=== PATIENT | female | born 1990 | race Caucasian/White ===

== ENCOUNTER 2018-08-27 13:19 | Inpatient (IN) | payer OTHER ==
[2018-08-27] VITALS (33 sets, daily range): BP systolic 126–194; BP diastolic 78–120
[~2018-08-27] VITALS: Ht 160 cm; Wt 83.1 kg
[2018-08-27] MEDS ORDERED: PRENTAB9 PO (13:28)
[2018-08-27] MEDS ORDERED: NIFEdipine 10 MG CAP PO ONE ×3 (13:45→18:45)
[2018-08-27] MEDS ORDERED: LABETALOL HCL 100 MG/20 ML VIAL IV ONE (13:45)
[2018-08-27 14:04] LABS: HEMATOCRIT 35.6 % (36.0-47.0); HEMOGLOBIN 12.1 g/dl (12.0-15.5); MEAN CORPUSCULAR HEMOGLOBIN 29.6 pg (27.0-33.0); PLATELET COUNT, AUTOMATED 109 10^3/uL (150-450); RED BLOOD COUNT 4.09 10^6/uL (4.00-5.40); WHITE BLOOD COUNT 8.2 10^3/uL (4.0-10.0)
[2018-08-27 14:35] LABS: ALT/SGPT 30 U/L (12-78); BILIRUBIN,TOTAL 0.1 MG/DL (0.2-1.0); CREATININE FOR GFR 0.48 MG/DL (0.55-1.30); GLOMERULAR FILTRATION RATE > 60.0 (>60); LDH LACTATE DEHYDROGENASE 192 U/L (84-246); URIC ACID 5.7 MG/DL (2.6-6.0)
[2018-08-27 14:42] LABS: CREATININE,RANDOM URINE 56.8 MG/DL; TOTAL PROTEIN,RANDOM URINE 506.8 MG/DL (0.0-12.0)
--- NOTE | 2018-08-27 16:05 | REP ---
Obstetric sonography: Limited study. History: Severe hypertension. well-being. Findings: Scanning demonstrates a viable single intrauterine gestation in a cephalic lie. Placenta is posterior fundal grade 2 without evidence of previa or abruption. Amniotic fluid is subjectively normal. ALETHA is normal at 12.8 cm. Biophysical profile score is six out of a possible eight with the zero scored for breathing. SD ratio in the umbilical cord artery by Doppler slightly elevated at 3.52 (2.00-3.00). heart rate is recorded at 132 beats per minute. Closed cervical length is 3.6 cm measured transabdominally. Electronically Signed by Juvenal Richards MD 08/27/2018 03:57 P
[2018-08-27] MEDS ORDERED: MAG Sulf (L&D) 4 GM/100 ML 4 GM in APPROPRIATE DILUENT 1 EA IV ONE (16:30)
[2018-08-27] MEDS ORDERED: miSOPROStol 50 MCG 1/2 TAB (S0191) PO PRN (16:30)
[2018-08-27] MEDS ORDERED: CALCIUM GLUCONATE 1,000 MG in D5W MINI-BAG PLUS 100 ML IV PRN (16:30)
[2018-08-27] MEDS ORDERED: LR 1,000 ML IV SCH (16:30)
[2018-08-27] MEDS ORDERED: BETAMETHASONE SOLUSPAN 6MG/ML INJ 5ML (J0702) IM SCH (16:30)
[2018-08-27] MEDS ORDERED: NIFEdipine 10 MG CAP As Ordered ONE (16:33)
[2018-08-27] MEDS ORDERED: MAGNESIUM *L&D* 4 GM/100 ML BAG (40MG/ML) (J3475) As Ordered ONE (16:34)
[2018-08-27] MEDS ORDERED: MAGNESIUM SULFATE 4% INJ 20GM/500ML (40MG/ML) (J3475) As Ordered ONE (16:35)
[2018-08-27] MEDS: LR 1,000 ML IV SCH (16:52)
[2018-08-27] MEDS: MAG Sulf (OBGYN) 20GM/500ML 20,000 MG in APPROPRIATE DILUENT 1 EA IV SCH (17:05)
--- NOTE | 2018-08-27 17:26 | HPEPDOC ---
Obstetrical History & Physical General Date of Admission Aug 27, 2018 at 16:48 History of Present Illness 27 y/o at 34+5 by 9 wk US and LMP dx'd with pre-e in the last 1-2 weeks, today for BP check with noted severe range BP's. 160-180's/90-100's. Feels well, no SAUL or RUQ pain. Labs done at first eval showed Cr 0.48, AST 33, SLT 30, LDH 192, Uric 5.7, Hct35.6, Plt 109 and spot urine P/Cr 8.92. All c/w Pre- E, severe features. No VB/LOF/reg ctx's. Irreg ctx's and pos FM present. Information Provided By: Patient Care Care: Good Care Dating Final EDC by: LMP, 1st trimester (US) Past Medical History Past Obstetrical History : Past Obstetrical History: Primgravida Past Medical History Medical History fibromyalgia Surgical History: Henderson teeth Family History Significant Family History: No pertinent family hx Social History Marital Status: Family situation: Spouse/partner home Psychosocial History: No pertinent psych hx * Smoker: non-smoker Alcohol: Denies Drugs: denies Abuse Violence Screening Have you been hit/kicked/slapp: No Have you been sexually assault: No Imunizations Tdap status: current Influenza Status: declined Allergies Coded Allergies: No Known Allergies (Unverified , 08/27/18) Medications Scheduled Multivitamins/ ( 27-0.8 mg) 1 Tab Tab, 1 TAB PO DAILY Physical Examination Physical Examination GENERAL: Alert and oriented times three. ABDOMEN: Gravid and non-tender to touch. FETUS: Is vertex (VTX) by sterile vaginal examination (SVE) and ultrasound, Cx L/C EXTREMITIES: No edema. No clonus, DTR's 2+ Vital Signs/I&O Vital Signs Date Time Temp Pulse Resp B/P (MAP) Pulse Ox O2 Delivery O2 Flow Rate FiO2 08/27/18 15:34 96 20 159/105 (123) 08/27/18 13:35 97.6 Laboratory Data 24H LABS Laboratory Tests 2 08/27/18 13:53: Urine Random Creatinine 56.8, Urine Random Total Protein 506.8H 08/27/18 13:56: Nucleated Red Blood Cells % (auto) 0.0, Glomerular Filtration Rate > 60.0, Creatinine 0.48L, Aspartate Amino Transf (AST/SGOT) 33, Alanine Aminotransferase (ALT/SGPT) 30, Lactate Dehydrogenase 192, Total Bilirubin 0.1L, Uric Acid 5.7 CBC/BMP Laboratory Tests 08/27/18 13:56 Red Blood Count 4.09, Mean Corpuscular Volume 87.0, Mean Corpuscular Hemoglobin 29.6, Mean Corpuscular Hemoglobin Concent 34.0, Red Cell Distribution Width 13.4, Aspartate Amino Transf (AST/SGOT) 33, Alanine Aminotransferase (ALT/SGPT) 30, Lactate Dehydrogenase 192, Total Bilirubin 0.1 L, Uric Acid 5.7 Urine Culture: Other (GBS) Pertinent Laboratoy Data Blood Type: O+ RBC Antibody Screen: Negative HIV: Negative Hepatitis B: Negative Hepatitis C: Unknown Rapid Plasma Reagin: Nonreactive Rubella: Immune Varicella: Immune Chlamydia/Gonorrhea: Negative Group B Streptococcus: Positive Quad Screen Test: Declined Cystic Fibrosis: Negative Glucose Tolerance Test: 111 Anatomy Ultrasound Placenta Location: Posterior Normal Anatomy: Yes Placenta Previa: No Steroid Therapy Steroid Therapy: Yes (started today; Beta 12 mg IM X2) Assessment Variability: Moderate Accelerations: Positive Decelerations: None Tocometer Contractions: Yes Frequency: irregular Assessment/Plan Assessment 35+4 with Pre-E, severe features Plan Admit and orient. Residential Advisor and consent. Diet: clears, limit oral intake. Group B Streptococcus (GBS) pos-will tx with PCN once in active labor. Received Nifedipine PO 10 mg a few hours ago to good effect but BP's worsened thereafter, just received Nifedipine 20 mg PO also to good effect. Will use another dose of oral Nifedipine if needed, then PO and IV Labetalol as needed. Q 6 hr CBC/Pre-E Pnl and Mag level (slightly elevated Cr) and intravenous (IV) Mag Sulfate per unit protocol. Betamethasone 12 mg IM now and in 24 hours. Counseled on Cytotec/Pitocin/Jackson Bulb and induction of labor (IOL). Will start with Cytotec 50 mcg po q 4 hrs prn per SOP. Lactated Ringers (LR) 125 mL/hr total with the Mag sulfate. Fley catheter. Anticipate normal spontaneous delivery (), C-S as appropriate. NICU consult. SESSIONS,ANJANA Bird MD Aug 27, 2018 17:26
[2018-08-27] MEDS ORDERED: ONDANSETRON 4MG/2ML VIAL (J2405) IV ONE (18:45)
[2018-08-27] MEDS ORDERED: ONDANSETRON 4MG/2ML VIAL (J2405) As Ordered ONE ×2 (18:47→22:08)
[2018-08-27 19:53] LABS: HEMATOCRIT 43.7 % (36.0-47.0); HEMOGLOBIN 14.9 g/dl (12.0-15.5); MEAN CORPUSCULAR HEMOGLOBIN 29.7 pg (27.0-33.0); MEAN CORPUSCULAR HGB CONC 34.1 g/dl (32.0-36.5); MEAN CORPUSCULAR VOLUME 87.2 fl (80.0-96.0); RED BLOOD COUNT 5.01 10^6/uL (4.00-5.40); WHITE BLOOD COUNT 20.7 10^3/uL (4.0-10.0)
[2018-08-27] MEDS ORDERED: LABETALOL 200 MG TAB PO SCH (20:00)
[2018-08-27] MEDS ORDERED: LABETALOL HCL 100 MG/20 ML VIAL IV STA (20:03)
[2018-08-27 20:20] LABS: PLATELET COUNT, AUTOMATED 57 10^3/uL (150-450)
[2018-08-27 20:38] LABS: ALT/SGPT 621 U/L (12-78); CREATININE FOR GFR 0.46 MG/DL (0.55-1.30); GLOMERULAR FILTRATION RATE > 60.0 (>60); LDH LACTATE DEHYDROGENASE 1453 U/L (84-246); MAGNESIUM LEVEL 5.3 MG/DL (1.8-2.4)
[2018-08-27] MEDS ORDERED: BICITRA 30ML SOLN UDC As Ordered ONE ×2 (21:09→21:10)
[2018-08-27] MEDS ORDERED: ceFAZolin 2 GM/D5W 50 ML IV BAG (J0690 PER 500MG) As Ordered ONE (21:10)
[2018-08-27] MEDS ORDERED: OXYTOCIN INJ 10 UNITS/ML VIAL (J2590) As Ordered ONE ×3 (21:21→22:31)
[2018-08-27] MEDS ORDERED: PROPOFOL 200 MG/20 ML VIAL As Ordered ONE (21:22)
[2018-08-27] MEDS ORDERED: LIDOCAINE 2% INJ 100 MG/5 ML SDV (FOR ANES.) As Ordered ONE (21:22)
[2018-08-27] MEDS ORDERED: MIDAZOLAM INJ 2 MG/2 ML VIAL (J2250) As Ordered ONE (21:23)
[2018-08-27] MEDS ORDERED: fentaNYL 100 MCG/2 ML INJECTION (J3010) As Ordered ONE ×2 (21:23→22:30)
[2018-08-27] MEDS ORDERED: SUCCINYLCHOLINE 100 MG/5 ML SYRINGE (J0330) As Ordered ONE (21:23)
[2018-08-27] MEDS ORDERED: BICITRA 30ML SOLN UDC PO ONE (21:30)
[2018-08-27] MEDS ORDERED: miSOPROStol 200 MCG TAB (S0191) As Ordered ONE (21:55)
[2018-08-27 22:01] LABS: CORD GAS ABE V -6.7; CORD GAS HCO3 V 21.1 MEQ/L; CORD GAS PCO2 V 50.6 mmHg; CORD GAS PH V 7.239 UNITS; CORD GAS PO2 V 27.7 mmHg; CORD GAS SBC V 18.2 MEQ/L; CORD GAS TCO2 V 22.7 MEQ/L
[2018-08-27 22:02] LABS: CORD GAS ABE A -5.5; CORD GAS HCO3 A 23.7 MEQ/L; CORD GAS O2 SAT A 16.2 %; CORD GAS PCO2 A 62.5 mmHg; CORD GAS PH A 7.197 UNITS; CORD GAS PO2 A 12.4 mmHg; CORD GAS SBC A 18.1 MEQ/L; CORD GAS TCO2 A 25.6 MEQ/L
[2018-08-27] MEDS ORDERED: METOCLOPRAMIDE INJ 10MG/2ML VIAL (J2765) As Ordered ONE (22:09)
[2018-08-27] MEDS ORDERED: dexameTHASONE 4 MG/ML 1ML VIAL (J1100) As Ordered ONE (22:12)
[2018-08-27 22:33] LABS: HEMATOCRIT 31.9 % (36.0-47.0); HEMOGLOBIN 10.9 g/dl (12.0-15.5); MEAN CORPUSCULAR HEMOGLOBIN 29.8 pg (27.0-33.0); MEAN CORPUSCULAR HGB CONC 34.2 g/dl (32.0-36.5); MEAN CORPUSCULAR VOLUME 87.2 fl (80.0-96.0); PLATELET COUNT, AUTOMATED 51 10^3/uL (150-450); RED BLOOD COUNT 3.66 10^6/uL (4.00-5.40); WHITE BLOOD COUNT 23.7 10^3/uL (4.0-10.0)
[2018-08-27 22:42] LABS: INR 1.08; PROTHROMBIN TIME 14.1 SECONDS (12.1-14.4)
[2018-08-27 22:43] LABS: PARTIAL THROMBOPLASTIN TIME 32.3 SECONDS (25.4-37.6)
[2018-08-27] MEDS ORDERED: OXYTOCIN DRIP 30 UNITS in APPROPRIATE DILUENT 1 EA IV SCH (23:23)
[2018-08-27] MEDS ORDERED: LABETALOL HCL 100 MG/20 ML VIAL As Ordered ONE (23:29)
[2018-08-27] MEDS ORDERED: miSOPROStol 200 MCG TAB (S0191) PR ONE (23:30)
[2018-08-27] MEDS: LABETALOL HCL 100 MG/20 ML VIAL IV PRN ×4 (23:30→23:55)
[2018-08-27] MEDS ORDERED: HYDROMORPHONE HCL 0.5 MG/ 0.5 ML SYRINGE (J1170 PER 1) IV PRN (23:30)
[2018-08-27] MEDS ORDERED: PERCOCET 5MG/325MG TAB PO PRN ×2 (23:30)
[2018-08-27] MEDS ORDERED: fentaNYL 100 MCG/2 ML INJECTION (J3010) IV PRN (23:30)
[2018-08-27] MEDS ORDERED: MEASLES,MUMPS,RUBELLA VACCINE INJ (MMR-II) (90707) SC SCH (23:30)
[2018-08-27] MEDS ORDERED: RHOGAM 300 MCG (1500 IU) INJ (J2790) IM SCH (23:30)
[2018-08-27] MEDS ORDERED: ONDANSETRON 4MG/2ML VIAL (J2405) IV PRN (23:30)
[2018-08-27] MEDS ORDERED: MORPHINE 1MG/ML IN 0.9% NACL 100ML IV BAG As Ordered ONE (23:54)
[2018-08-28] VITALS (28 sets, daily range): BP systolic 120–173; BP diastolic 69–106
[2018-08-28] MEDS ORDERED: NALBUPHINE HCL 10 MG/ML AMP (J2300) IV PRN
[2018-08-28] MEDS ORDERED: NALOXONE INJ 0.4 MG/1 ML VIAL (J2310) IV PRN
[2018-08-28] MEDS ORDERED: EPIDURAL/PCA KEYS XX PRN
[2018-08-28] MEDS ORDERED: MORPHINE 1MG/ML IN 0.9% NACL 100ML IV BAG IV PRN
[2018-08-28] MEDS ORDERED: diphenhydrAMINE INJ 50MG/ML VIAL (J1200) IV PRN
[2018-08-28] MEDS ORDERED: ONDANSETRON 4MG/2ML VIAL (J2405) IV PRN
[2018-08-28] MEDS: LR 1,000 ML IV SCH ×3 (00:30→16:13)
[2018-08-28] MEDS ORDERED: NS 1,000 ML IV SCH (01:45)
[2018-08-28] MEDS: LABETALOL 200 MG TAB PO SCH ×4 (02:00→20:19)
[2018-08-28 04:16] LABS: HEMATOCRIT 30.2 % (36.0-47.0); HEMOGLOBIN 10.2 g/dl (12.0-15.5); MEAN CORPUSCULAR HEMOGLOBIN 29.7 pg (27.0-33.0); MEAN CORPUSCULAR HGB CONC 33.8 g/dl (32.0-36.5); RED BLOOD COUNT 3.43 10^6/uL (4.00-5.40); WHITE BLOOD COUNT 12.1 10^3/uL (4.0-10.0)
[2018-08-28 04:32] LABS: INR 1.19; PARTIAL THROMBOPLASTIN TIME 29.9 SECONDS (25.4-37.6); PROTHROMBIN TIME 15.3 SECONDS (12.1-14.4)
[2018-08-28 04:37] LABS: PLATELET COUNT, AUTOMATED 26 10^3/uL (150-450)
[2018-08-28] MEDS ORDERED: MAGNESIUM SULFATE 4% INJ 20GM/500ML (40MG/ML) (J3475) As Ordered ONE (04:45)
[2018-08-28] MEDS: MAG Sulf (OBGYN) 20GM/500ML 20,000 MG in APPROPRIATE DILUENT 1 EA IV SCH ×2 (04:54→07:04)
[2018-08-28 05:02] LABS: ALT/SGPT 427 U/L (12-78); BILIRUBIN,TOTAL 2.2 MG/DL (0.2-1.0); CREATININE FOR GFR 0.71 MG/DL (0.55-1.30); GLOMERULAR FILTRATION RATE > 60.0 (>60); MAGNESIUM LEVEL 14.3 MG/DL (1.8-2.4); URIC ACID 5.9 MG/DL (2.6-6.0)
[2018-08-28 05:49] LABS: LDH LACTATE DEHYDROGENASE 1768 U/L (84-246)
--- NOTE | 2018-08-28 08:20 | IPNPDOC ---
Text Note Date of Service The patient was seen on 08/28/18. NOTE POD1 emergent Primary due to severely worsening severe Pre-E, newly dx'd HELLP just before surgery Pt seen approx 2 hrs ago. States no complaints of CP/SOB/vis changes. Feeling well other than menstrual like cramps. No VB per pt and also per RN. Has not seen the baby yet. VS noted, see below UO 80, 60, 45, 75 the last 4 hours Inc CDI, small amt drainage only CTAB RRR per RN Abdom appropr tenderness DTR's 2+ no clonus 22JAN 1400 admit labs: Cr 0.48, Bili 0.1, AST 33, ALT 30, HCT 35.6, PLT 109 22AUG 2000 labs: Mag level 5.3, Cr 0.46, Bili 1.0, AST 860, ALT 621, LDH 1453, HCT 43.7, PLT 57 23JAN 0400 labs: Mag level 14.3, Cr 0.71, Bili 2.2, AST 808, ALT 427, LDH 1768, HCT 30.2, PLT 26, PT 15, INR 1.19, PTT 29, Fibr 359 a/p: Immediately stopped the Magnesium and gave her Calcium Carbonate due to magnesium toxicity although the pt surprisingly has no sx's of such, at all. Obviuos renal insufficiency. UO barely adequate. PLT's noted and is getting a second pool of PLT's. Repeat CBC, Pre-E PNL, and Mag level at 1000. Following closely with Dr Darby, ICU staff. Q 6 hr labs and will transfuse as necessary. Sessions Eulalia HUMMEL, I+O Eulalia PONCE I+O Laboratory Tests 08/27/18 13:56 Red Blood Count 4.09, Mean Corpuscular Volume 87.0, Mean Corpuscular Hemoglobin 29.6, Mean Corpuscular Hemoglobin Concent 34.0, Red Cell Distribution Width 13.4, Aspartate Amino Transf (AST/SGOT) 33, Alanine Aminotransferase (ALT/SGPT) 30, Lactate Dehydrogenase 192, Total Bilirubin 0.1 L, Uric Acid 5.7 08/27/18 19:43 Red Blood Count 5.01, Mean Corpuscular Volume 87.2, Mean Corpuscular Hemoglobin 29.7, Mean Corpuscular Hemoglobin Concent 34.1, Red Cell Distribution Width 13.3, Aspartate Amino Transf (AST/SGOT) 860 H, Alanine Aminotransferase (ALT/SGPT) 621 H, Lactate Dehydrogenase 1453 H, Total Bilirubin 1.0 #, Uric Acid 6.0 08/27/18 22:19 Red Blood Count 3.66 L, Mean Corpuscular Volume 87.2, Mean Corpuscular Hemoglobin 29.8, Mean Corpuscular Hemoglobin Concent 34.2, Red Cell Distribution Width 13.3 08/28/18 04:05 Red Blood Count 3.43 L, Mean Corpuscular Volume 88.0, Mean Corpuscular Hemoglobin 29.7, Mean Corpuscular Hemoglobin Concent 33.8, Red Cell Distribution Width 13.5, Aspartate Amino Transf (AST/SGOT) 808 H, Alanine Aminotransferase (ALT/SGPT) 427 H, Lactate Dehydrogenase 1768 H, Total Bilirubin 2.2 #H, Uric Acid 5.9 Vital Signs Date Time Temp Pulse Resp B/P (MAP) Pulse Ox O2 Delivery O2 Flow Rate FiO2 08/28/18 07:00 98.0 94 16 146/92 (110) 96 Room Air 08/28/18 05:48 2.0 I&O- Last 24 Hours up to 6 AM 08/28/18 06:00 Intake Total 3065.5 ml Output Total 1255 ml Balance 1810.5 ml SESSIONS,ANAJNA Bird MD Aug 28, 2018 08:20
[2018-08-28] MEDS: DOCUSATE SODIUM 100 MG CAP PO SCH ×2 (09:02→21:19)
[2018-08-28] MEDS: PRENATAL VITAMINS CHEWABLE TABLET PO SCH (09:02)
[2018-08-28 10:15] LABS: HEMATOCRIT 26.4 % (36.0-47.0); MEAN CORPUSCULAR HEMOGLOBIN 29.2 pg (27.0-33.0); MEAN CORPUSCULAR HGB CONC 34.1 g/dl (32.0-36.5); MEAN CORPUSCULAR VOLUME 85.7 fl (80.0-96.0); RED BLOOD COUNT 3.08 10^6/uL (4.00-5.40); WHITE BLOOD COUNT 14.5 10^3/uL (4.0-10.0)
[2018-08-28 10:17] LABS: PLATELET COUNT, AUTOMATED 47 10^3/uL (150-450)
[2018-08-28 10:50] LABS: ALT/SGPT 330 U/L (12-78); BILIRUBIN,TOTAL 1.1 MG/DL (0.2-1.0); CREATININE FOR GFR 0.62 MG/DL (0.55-1.30); GLOMERULAR FILTRATION RATE > 60.0 (>60); LDH LACTATE DEHYDROGENASE 1367 U/L (84-246); URIC ACID 5.8 MG/DL (2.6-6.0)
--- NOTE | 2018-08-28 11:41 | RO ---
DATE OF OPERATION: 08/27/2018 SURGEON: Mitul Jenkins MD APPLIED PSYCHOLOGY PROFESSOR: Christofer Barton DO who was essential for a rapid entry, tissue retraction, closure of all tissue planes, and general assistance. PREOPERATIVE DIAGNOSES: Preeclampsia with severe features, hemolysis, elevated liver enzymes, low platelets (HELLP) syndrome, worsening. POSTOPERATIVE DIAGNOSES: Preeclampsia with severe features, hemolysis, elevated liver enzymes, low platelets (HELLP) syndrome, worsening. OPERATION PERFORMED: ANESTHESIA: General endotracheal. ESTIMATED BLOOD LOSS: 600 mL. FLUIDS REPLACED: 2100 cc lactated Ringer. She also got a pool of platelets. DRAINS: 20 mL of vanesa-colored urine in the Jackson catheter after the case was finished. PREOPERATIVE ANTIBIOTICS: Ancef 2 grams intravenous (IV). FINDINGS: Rapid Pfannenstiel incision with fascial-rip technique, 1 minute from incision to delivery, scores 8 and 9, weight 4 pounds 4 ounces, male, clear fluid. SPECIMENS: Placenta. INDICATIONS: The patient was diagnosed with preeclampsia with severe features at 34 and 5 weeks' gestation earlier in the day at roughly 2 p.m. She had normal admission laboratories other than a gpkwvkw-[id number] ratio of 8.9, which was very elevated, and a creatinine of 0.48. Her complete blood count (CBC) and preeclampsia profile were otherwise normal. However, due to her persistent severe-range blood pressures needing treatment with nifedipine times three and labetalol times two, I decided to do [id number] laboratories, including a magnesium level, CBC, and a preeclampsia profile. At her 8 o'clock draw, her bilirubin had gone from 0.1 to 1.0. Her AST had gone from 33 to 860. Her ALT went from 30 to 621. Her LDH went from 192 to 1453. Her hematocrit went from 35.6 to 43.7 showing hemoconcentration, and her platelets dropped from 109 to 57. Therefore, a diagnosis of worsening preeclampsia with HELLP syndrome. That is hemolysis, elevated liver enzymes, land low platelets. Was diagnosed and need for immediate delivery was discussed with the patient, and informed consent was obtained for an emergent rapid primary delivery. As soon as the room was opened and instruments counted, we brought the patient into the operating room, prepped her abdomen; and while the anesthesia team did a rapid-sequence intubation, we were poised, ready to a rapid Pfannenstiel delivery as soon as the tube went past the cords. DESCRIPTION OF THE OPERATION: As soon as the tube was announced to be through the cords, I did a Pfannenstiel skin incision over the area I had demarcated previously. This was carried down to the layer of the fascia, which was nicked in the midline, and with a fascial-rip technique by and Dr. Barton, we were able to gain access through the fascia. I quickly the rectus muscles in the midline and breeched the peritoneum with my digit. With a rapid peritoneal stretch maneuver, I created an adequate peritoneal window. The bladder blade was placed, and a low transverse uterine incision was performed at the appropriate location down to the layer of the amnion, which was breeched with a large amount of clear fluid noted. The infant's head was elevated with fundal pressure, easily delivered with no delay of either shoulder. The was noted to be vigorous, male, and the cord was clamped times two and cut. Cord blood was obtained and cord gases, as well, which were normal. The arterial blood gas was 7.2 with base excess of negative 5.5 with a venous blood gas with a pH of 7.24 with a base excess of negative 6.7. The placenta was delivered with fundal massage and traction. The uterus was delivered through the abdomen, wrapped in a warm sponge, and the uterine cavity was then cleared with two dry sponges. We quickly closed the uterine incision from left to right with a running locked 0 Vicryl and then closed the same incision with imbrication stitch of 0 Monocryl. Hemostasis was confirmed prior to putting the uterus back into the abdomen, and irrigation was performed behind the uterus. Before closing the peritoneum, we again confirmed hemostasis from the uterine incision and cleared any clots from the abdomen. There was no significant oozing at this point. The peritoneum was closed with a running 2-0 Vicryl from superior to inferior. The rectus bellies were noted to be hemostatic. The fascia was closed from left to right with a running suture of 0 Vicryl. The subcutaneous tissue was copiously irrigated. The subcutaneous potential space was closed with 2-0 Vicryl running suture from left to right without difficulty. The skin was closed with 4-0 Monocryl from left to right; and a pressure dressing, including Steri-Strips, was placed over the incision. Right at the end of the case at 2218, the CBC was done with the hematocrit of 31.9 and platelets of 51. The coagulation panel (coags) upon entry into the postanesthesia care unit (PACU) were noted to be normal, as well, including a normal fibrinogen and international normalized ratio (INR). After the patient's bandage was placed, her legs were frogged. With a bimanual examination, the fundus was noted to be firm at U-1 and cervix was 2-3 cm. A moderate amount of blood and clot was expressed from the lower uterine segment and cervix. This was cleaned off and 1000 mcg of Cytotec was placed into the rectum by me as further prophylaxis for bleeding. Along the same lines, she also received 40 units of Pitocin IV bolus after delivery of the placenta and will receive another 20 units of Pitocin through her IV at 125 an hour. The patient was transferred to the PACU in stable condition with plans for transfer to the intensive care unit after a discussion with Dr. Darby, the hydrogen power plant engineer. I spoke, as well, to the registered nurse (RN) in the intensive care unit (ICU) caring for this patient regarding neuro checks, fundal massage, and urine output checking, as well vital signs monitoring and laboratory monitoring. All counts were correct at the end of the procedure, including sponge, needle, and instruments. ROHIT
[2018-08-28 15:53] LABS: HEMATOCRIT 24.9 % (36.0-47.0); HEMOGLOBIN 8.7 g/dl (12.0-15.5); MEAN CORPUSCULAR HEMOGLOBIN 29.9 pg (27.0-33.0); MEAN CORPUSCULAR HGB CONC 34.9 g/dl (32.0-36.5); MEAN CORPUSCULAR VOLUME 85.6 fl (80.0-96.0); RED BLOOD COUNT 2.91 10^6/uL (4.00-5.40)
[2018-08-28 15:55] LABS: PLATELET COUNT, AUTOMATED 41 10^3/uL (150-450)
[2018-08-28 16:26] LABS: ALT/SGPT 293 U/L (12-78); BILIRUBIN,TOTAL 0.7 MG/DL (0.2-1.0); CREATININE FOR GFR 0.57 MG/DL (0.55-1.30); GLOMERULAR FILTRATION RATE > 60.0 (>60); LDH LACTATE DEHYDROGENASE 979 U/L (84-246); MAGNESIUM LEVEL 4.2 MG/DL (1.8-2.4); URIC ACID 5.1 MG/DL (2.6-6.0)
[2018-08-28 21:44] LABS: HEMATOCRIT 26.3 % (36.0-47.0); MEAN CORPUSCULAR HEMOGLOBIN 29.8 pg (27.0-33.0); MEAN CORPUSCULAR HGB CONC 34.2 g/dl (32.0-36.5); MEAN CORPUSCULAR VOLUME 87.1 fl (80.0-96.0); RED BLOOD COUNT 3.02 10^6/uL (4.00-5.40); WHITE BLOOD COUNT 15.2 10^3/uL (4.0-10.0)
[2018-08-28 21:45] LABS: PLATELET COUNT, AUTOMATED 50 10^3/uL (150-450)
[2018-08-28 22:05] LABS: ALT/SGPT 266 U/L (12-78); BILIRUBIN,TOTAL 0.4 MG/DL (0.2-1.0); CREATININE FOR GFR 0.46 MG/DL (0.55-1.30); GLOMERULAR FILTRATION RATE > 60.0 (>60); LDH LACTATE DEHYDROGENASE 781 U/L (84-246); MAGNESIUM LEVEL 4.3 MG/DL (1.8-2.4); URIC ACID 4.8 MG/DL (2.6-6.0)
[2018-08-28] MEDS ORDERED: PERCOCET 5MG/325MG TAB PO PRN (22:45)
[2018-08-29] VITALS (12 sets, daily range): BP systolic 119–144; BP diastolic 66–89
[2018-08-29] MEDS: LR 1,000 ML IV SCH (00:30)
[2018-08-29] MEDS: LABETALOL 200 MG TAB PO SCH ×4 (03:02→21:59)
[2018-08-29 04:43] LABS: HEMATOCRIT 23.7 % (36.0-47.0); MEAN CORPUSCULAR HEMOGLOBIN 29.3 pg (27.0-33.0); MEAN CORPUSCULAR HGB CONC 33.8 g/dl (32.0-36.5); MEAN CORPUSCULAR VOLUME 86.8 fl (80.0-96.0); PLATELET COUNT, AUTOMATED 46 10^3/uL (150-450); RED BLOOD COUNT 2.73 10^6/uL (4.00-5.40); WHITE BLOOD COUNT 12.3 10^3/uL (4.0-10.0)
[2018-08-29 04:50] LABS: ALT/SGPT 231 U/L (12-78); BILIRUBIN,TOTAL 0.3 MG/DL (0.2-1.0); CREATININE FOR GFR 0.43 MG/DL (0.55-1.30); GLOMERULAR FILTRATION RATE > 60.0 (>60); LDH LACTATE DEHYDROGENASE 614 U/L (84-246); MAGNESIUM LEVEL 4.5 MG/DL (1.8-2.4); URIC ACID 4.7 MG/DL (2.6-6.0)
--- NOTE | 2018-08-29 05:40 | IPN ---
DATE: 08/28/2018 at 2245 p.m. This lady had a primary section for worsening pre- eclampsia with superimposed hemolysis, elevated liver enzymes and low platelet count (HELLP) syndrome and severe range blood pressures requiring aggressive management with antihypertensives including nifedipine and labetalol. She required to have an emergency low transverse section under general anesthetic. A live male 4 pounds 4 ounces of 8 and 9 at 1 and 5 minutes respectively. The arterial pH was 7.19, base excess -5.5, venous pH 7.23, base excess -6.7. The baby is in intensive care unit (NICU) on a vent at 34 weeks and 5 days. He is apparently doing well. Throughout her course in the intensive care unit (ICU) she progressively got better. She was initially on magnesium sulfate and her magnesium levels went up to a high of 14.3. She was given calcium gluconate and presently her magnesium levels are 4.3. Her pupils are equal and reactive to light. Her pupils size is normal at 3, her reactions are brisk on her eye assessment. Her reflexes are normal. There is no evidence of clonus. There is no evidence of edema. Her liver enzymes have progressively gotten better with a high AST of 816, now at 269, ALT was a high of 621 and is now 266 and lactate dehydrogenase (LDH) with a high of 1453 now at 781. Her coagulation profile is normal. Complete blood count (CBC): Her hemoglobin is stabilizing out with a hemoglobin and hematocrit of 9.0 and 26.3. Platelets are beginning to rise on their own spontaneously. She had a low of 26. They are now presently at 50. She is presently diuresing and she has put out a total of 3790 mL of clear urine with some highs at 375 mL and some highs at 600 mL/hr. She denies any headache, right upper quadrant pain, visual disturbances. She has never been having symptoms of either preeclampsia or HELLP syndrome. Our plan of management at the present time is to discontinue the morphine, continue the IV at 125 an hour, advance her to full fluids, discontinue the Jackson catheter in the morning and move her from the ICU to maternity once her lab values have come back at 0700 hours in the morning. Her blood pressures have been in the mid range 150/87, 150/71 and 150/81. She has never had any severe range blood pressures. She is presently on labetalol 200 every 6 hours and this is maintaining her blood pressure in the mid range levels. The nurses were notified to call the practitioner if she has severe range blood pressure in the form of 160/100 or anything below 120/80. The incision is clean and dry. Bowel sounds are present. She is well orientated to time, space, follows commands and is acting appropriately. In summary, we have a severe pre-eclampsia with superimposed hemolysis, elevated liver enzymes and low platelet count (HELLP) syndrome with emergency section, now on the upward trend of healing.
--- NOTE | 2018-08-29 06:58 | IPN ---
DATE: 08/29/2018 This lady had a primary section because of severe preeclampsia with overriding HELLP syndrome. She required aggressive hypertensive management. She had 1 unit of platelets and over the last 24 hours she has markedly improved. Her blood pressures presently are 129/80, 139/80, 121/66, 125/76. She is still presently on labetalol 200 q.6 h. Her intake and output total volume at the present time, overnight she had 4200 diurese, urine is still a bit concentrated but the edema in her legs has significantly gone down and the flank area has also gone down. She is alert, she is awake. She has no visual disturbances, right upper quadrant pain, or any indication of preeclampsia, and she is progressively getting better. Her lab values at 0400 hours her hemoglobin is 8.0, hematocrit 23.7, platelets are 46. Her chemistry, again her AST, ALT and LDH are dropping significantly from the previous highs. Her AST is 200, ALT is 231 and her LDH is 614. The magnesium level is 4.5. She is on 1 gram an hour. Her uric acid is within normal limits at 4.7. GFR is greater than 60, creatinine is 0.43 from a high of 0.71. Our plan of management today is to remove the Jackson catheter, transfer her out to the floor, monitor her blood pressures, continue with her labetalol, advance her diet, and she is trending upward for getting better. Her BMP is not available at the present time, but we are going to look at her electrolytes in view of the fact that she is having significant diuresis. In summary have a at 34 and 5 with severe preeclampsia, superimposed HELLP syndrome, progressively getting better, anxious to get out of the ICU and we have arranged for her to be transferred to maternity.
[2018-08-29 07:57] LABS: BLOOD UREA NITROGEN 13 MG/DL (7-18); CALCIUM LEVEL 6.7 MG/DL (8.5-10.1); CARBON DIOXIDE LEVEL 25 MEQ/L (21-32); CHLORIDE LEVEL 104 MEQ/L (98-107); GLUCOSE, FASTING 94 MG/DL (70-100); POTASSIUM SERUM 4.3 MEQ/L (3.5-5.1); SODIUM LEVEL 139 MEQ/L (136-145)
[2018-08-29] MEDS ORDERED: LR 1,000 ML IV SCH (08:15)
[2018-08-29] MEDS: DOCUSATE SODIUM 100 MG CAP PO SCH ×2 (08:43→20:58)
[2018-08-29] MEDS: PRENATAL VITAMINS CHEWABLE TABLET PO SCH (08:43)
[2018-08-29 10:12] LABS: HEMATOCRIT 24.2 % (36.0-47.0); HEMOGLOBIN 8.3 g/dl (12.0-15.5); MEAN CORPUSCULAR HGB CONC 34.3 g/dl (32.0-36.5); MEAN CORPUSCULAR VOLUME 87.4 fl (80.0-96.0); RED BLOOD COUNT 2.77 10^6/uL (4.00-5.40); WHITE BLOOD COUNT 12.7 10^3/uL (4.0-10.0)
[2018-08-29 10:22] LABS: PLATELET COUNT, AUTOMATED 51 10^3/uL (150-450)
[2018-08-29 10:40] LABS: ALT/SGPT 214 U/L (12-78); BILIRUBIN,TOTAL 0.3 MG/DL (0.2-1.0); CREATININE FOR GFR 0.48 MG/DL (0.55-1.30); GLOMERULAR FILTRATION RATE > 60.0 (>60); LDH LACTATE DEHYDROGENASE 577 U/L (84-246); URIC ACID 4.7 MG/DL (2.6-6.0)
[2018-08-29] MEDS: SIMETHICONE 80 MG CHEW TAB PO SCH ×3 (11:25→20:58)
[2018-08-29] MEDS ORDERED: PILL CRUSHER/CUTTER 1 EACH XX PRN (11:45)
[2018-08-29] MEDS ORDERED: NORCO, ANEXSIA 5/325MG TABLET (HYDROcodone/ACETAMINOPHEN) PO PRN (18:00)
[2018-08-29] MEDS: IBUPROFEN 800 MG TAB PO SCH (18:57)
[2018-08-30] MEDS: IBUPROFEN 800 MG TAB PO SCH ×3 (01:53→17:38)
[2018-08-30 02:00] VITALS: BP 124/76
[2018-08-30 05:55] VITALS: BP_SYST 127; BP_SYST 137; BP_DIAS 78
[2018-08-30] MEDS: LABETALOL 200 MG TAB PO SCH ×3 (06:02→21:51)
[2018-08-30 06:47] LABS: HEMATOCRIT 23.4 % (36.0-47.0); HEMOGLOBIN 7.8 g/dl (12.0-15.5); MEAN CORPUSCULAR HEMOGLOBIN 29.9 pg (27.0-33.0); MEAN CORPUSCULAR HGB CONC 33.3 g/dl (32.0-36.5); MEAN CORPUSCULAR VOLUME 89.7 fl (80.0-96.0); PLATELET COUNT, AUTOMATED 62 10^3/uL (150-450); RED BLOOD COUNT 2.61 10^6/uL (4.00-5.40); WHITE BLOOD COUNT 12.9 10^3/uL (4.0-10.0)
[2018-08-30 07:12] LABS: ALT/SGPT 141 U/L (12-78); BILIRUBIN,TOTAL 0.2 MG/DL (0.2-1.0); CREATININE FOR GFR 0.36 MG/DL (0.55-1.30); GLOMERULAR FILTRATION RATE > 60.0 (>60); LDH LACTATE DEHYDROGENASE 374 U/L (84-246); URIC ACID 4.3 MG/DL (2.6-6.0)
[2018-08-30] MEDS: PRENATAL VITAMINS CHEWABLE TABLET PO SCH (09:09)
[2018-08-30] MEDS: DOCUSATE SODIUM 100 MG CAP PO SCH ×2 (09:09→20:24)
[2018-08-30] MEDS: SIMETHICONE 80 MG CHEW TAB PO SCH ×4 (09:10→20:24)
[2018-08-30] MEDS ORDERED: PERCOCET 5MG/325MG TAB PO PRN ×2 (10:00)
--- NOTE | 2018-08-30 10:09 | IPNPDOC ---
Text Note Date of Service The patient was seen on 08/30/18. NOTE POD3 emergent Primary due to severely worsening severe Pre-E, newly dx'd HELLP just before surgery. States no complaints of CP/SOB/vis changes. Feeling well other than menstrual like cramps. Minimal VB per pt. Voiding, ambulatory, pos flatus, pooped x1 yest. Seen baby many times now. Feeding well. VS noted, see below CTAB RRR Inc CDI, small superficial blister (<1 cm) on right aspect of incision and some clotted blood noted on the far right steri. Removed and while doing so the blister popped. Dabbed and cleaned with a sterile 4x4. Abdom appropr tenderness, Ut U-2, firm 25jan labs: Hct 23.4, Plt 62, Cr 0.36, Bili 0.2, AST 77, ALT 141, LDH 374 a/p: Doing very well on Labetalol 200 TID. Visiting NICU frequently. Likely d/c tomorrow. Repeat CBC, Pre-E PNL at 0500. Sessions Eulalia HUMMEL, I+O VSEulalia I+O Laboratory Tests 08/30/18 06:34 Red Blood Count 2.61 L, Mean Corpuscular Volume 89.7, Mean Corpuscular Hemoglobin 29.9, Mean Corpuscular Hemoglobin Concent 33.3, Red Cell Distribution Width 14.6 H, Aspartate Amino Transf (AST/SGOT) 77 H, Alanine Aminotransferase (ALT/SGPT) 141 H, Lactate Dehydrogenase 374 H, Total Bilirubin 0.2, Uric Acid 4.3 Vital Signs Date Time Temp Pulse Resp B/P (MAP) Pulse Ox O2 Delivery O2 Flow Rate FiO2 08/30/18 06:02 84 137/78 08/30/18 05:55 97.7 18 08/29/18 22:00 97 Room Air 08/28/18 05:48 2.0 I&O- Last 24 Hours up to 6 AM 08/30/18 05:59 Intake Total 423 ml Output Total 1700 ml Balance -1277 ml SESSIONS,ANJANA Bird MD Aug 30, 2018 10:09
[2018-08-30 10:12] VITALS: BP 125/81
[2018-08-30 14:12] VITALS: BP 138/81
[2018-08-30 17:10] VITALS: BP 131/74
[2018-08-30 21:52] VITALS: BP 143/77
[2018-08-31] MEDS: IBUPROFEN 800 MG TAB PO SCH ×2 (01:42→09:31)
[2018-08-31 02:00] VITALS: BP 142/87
[2018-08-31] MEDS: LABETALOL 200 MG TAB PO SCH ×2 (05:40→14:06)
[2018-08-31 06:00] VITALS: BP 140/93
[2018-08-31 07:06] LABS: HEMOGLOBIN 7.5 g/dl (12.0-15.5); MEAN CORPUSCULAR HEMOGLOBIN 29.8 pg (27.0-33.0); MEAN CORPUSCULAR HGB CONC 32.6 g/dl (32.0-36.5); MEAN CORPUSCULAR VOLUME 91.3 fl (80.0-96.0); RED BLOOD COUNT 2.52 10^6/uL (4.00-5.40); WHITE BLOOD COUNT 12.9 10^3/uL (4.0-10.0)
[2018-08-31 07:09] LABS: PLATELET COUNT, AUTOMATED 91 10^3/uL (150-450)
[2018-08-31 07:12] LABS: ALT/SGPT 131 U/L (12-78); BILIRUBIN,TOTAL 0.2 MG/DL (0.2-1.0); GLOMERULAR FILTRATION RATE > 60.0 (>60); LDH LACTATE DEHYDROGENASE 318 U/L (84-246); URIC ACID 4.1 MG/DL (2.6-6.0)
[2018-08-31] MEDS: DOCUSATE SODIUM 100 MG CAP PO SCH (08:52)
[2018-08-31] MEDS: PRENATAL VITAMINS CHEWABLE TABLET PO SCH (08:52)
[2018-08-31] MEDS: SIMETHICONE 80 MG CHEW TAB PO SCH ×2 (08:52→14:05)
--- NOTE | 2018-08-31 09:22 | IPNPDOC ---
Text Note Date of Service The patient was seen on 08/31/18. NOTE POD4 emergent Primary due to severely worsening severe Pre-E, newly dx'd HELLP just before surgery. States no complaints of CP/SOB/vis changes. Feeling well other than menstrual like cramps. Minimal VB per pt. Voiding, ambulatory, pos flatus, pooping. Seen baby many times now. Feeding well. VS noted, see below CTAB RRR Inc CDI, bruising worsening but no induration or fluctuance Abdom appropr tenderness, Ut U-2, firm jan labs: HCT 23, PLT 91, Cr 0.4, LDH 318, AST 81, ALT 131 a/p: Doing very well on Labetalol 200 TID. Visiting NICU frequently. d/c to day, boarding if desires and floor can accomodate. Sessions MD PONCE,Eulalia, I+O VSEulalia I+O Laboratory Tests 08/31/18 06:26 Red Blood Count 2.52 L, Mean Corpuscular Volume 91.3, Mean Corpuscular Hemoglobin 29.8, Mean Corpuscular Hemoglobin Concent 32.6, Red Cell Distribution Width 14.4, Aspartate Amino Transf (AST/SGOT) 81 H, Alanine Aminotransferase (ALT/SGPT) 131 H, Lactate Dehydrogenase 318 H, Total Bilirubin 0.2, Uric Acid 4.1 Vital Signs Date Time Temp Pulse Resp B/P (MAP) Pulse Ox O2 Delivery O2 Flow Rate FiO2 08/31/18 06:00 98.1 92 18 140/93 (109) 97 Room Air 08/28/18 05:48 2.0 I&O- Last 24 Hours up to 6 AM 08/31/18 06:00 Output Total 675 ml Balance -675 ml SESSIONS,ANJANA Bird MD Aug 31, 2018 09:22
--- NOTE | 2018-08-31 09:34 | DS.PDOC ---
Discharge Summary General Date of Admission Aug 27, 2018 at 16:48 Date of Discharge [id number] Discharge Summary ADMITTING DIAGNOSES: Induction for Pre-Eclampsia; severe features DISCHARGE DIAGNOSES: Same complicated by HELLP Syndrome and delivery at 34+5 weeks HOSPITAL COURSE: Admitted and BP's noted very high, difficult to control despite 2 medications, after just 6 hours her labs went from normal to florid HELLP Syndrome and she underwent an uncomplicated delivery. She received 1 unit of PLT's intraop and 1 unit 6 hours postop in the ICU. No other blood products. She had to have her Mag Sulfate turned off once for a high Mag level and received only 1 GM/hr thereafter. Placed on oral Labetalol 200 mg TID which adequately covered her hypertension the rest of her hospitalization. On day of discharge, POD4, her PLT's were 91 and her HCT was 23. Other Pre-E labs all trending significantly towards normal. DISCHARGE MEDICATIONS: Motrin, Lanolin, Colace, Percocet, Nor, Labetalol DISCHARGE INSTRUCTIONS: Nothing in the vagina for 6 weeks. No bathing for 4 weeks. No driving for 2 weeks. F/U in OBGYN clinic in 3-4 days for BP check and 1-2 weeks for incision check. also OBGYN clinic in 6-8 weeks. Sessions Vital Signs/I&Os Vital Signs Date Time Temp Pulse Resp B/P (MAP) Pulse Ox O2 Delivery O2 Flow Rate FiO2 08/31/18 06:00 98.1 92 18 140/93 (109) 97 Room Air 08/28/18 05:48 2.0 I&O- Last 24 Hours up to 6 AM 08/31/18 06:00 Output Total 675 ml Balance -675 ml Laboratory Data Labs 24H Laboratory Tests 2 08/31/18 06:26: Nucleated Red Blood Cells % (auto) 0.3H, Glomerular Filtration Rate > 60.0, Creatinine 0.40L, Aspartate Amino Transf (AST/SGOT) 81H, Alanine Aminotransferase (ALT/SGPT) 131H, Lactate Dehydrogenase 318H, Total Bilirubin 0.2, Uric Acid 4.1 CBC/BMP Laboratory Tests 08/31/18 06:26 Red Blood Count 2.52 L, Mean Corpuscular Volume 91.3, Mean Corpuscular Hemoglobin 29.8, Mean Corpuscular Hemoglobin Concent 32.6, Red Cell Distribution Width 14.4, Aspartate Amino Transf (AST/SGOT) 81 H, Alanine Aminotransferase (ALT/SGPT) 131 H, Lactate Dehydrogenase 318 H, Total Bilirubin 0.2, Uric Acid 4.1 Discharge Medications Scheduled Multivitamins/ ( 27-0.8 mg) 1 Tab Tab, 1 TAB PO DAILY, (Reported) Allergies Coded Allergies: No Known Allergies (Unverified , 08/27/18) FARRAH,ANJANA Bird MD Aug 31, 2018 09:34
[2018-08-31 10:02] VITALS: BP 141/93
[2018-08-31] MEDS ORDERED: COLA100C5 PO (11:15)
[2018-08-31] MEDS ORDERED: LABE20TAB PO (11:20)
[2018-08-31] MEDS ORDERED: IBUP-1114 PO (11:22)
[2018-08-31] MEDS ORDERED: OXYC1TAB23 PO (11:24)
[2018-08-31 14:00] VITALS: BP 140/86
[2018-08-31 14:06] VITALS: BP 140/86
== END 2018-08-31 17:40 | disposition home or self-care (01) | DRG 773 ==
LOC: M LDO 13:19 → M LDI 16:48 → M ICU 08-28 00:20 → M OBS 08-29 09:10
PROVIDERS: ADMIT Obstetrics & Gynecology; ATTEND Obstetrics & Gynecology
PROC: 3E0P7GC Introduction of Other Therapeutic Substance into Female Reproductive, Via Natural or Artificial Opening (ICD-10-PCS; 2018-08-27)
PROC: 10D00Z1 Extraction of Products of Conception, Low, Open Approach (ICD-10-PCS; principal; 2018-08-27 21:28)
DX: O14.24 HELLP syndrome, complicating childbirth (principal); O99.824 Streptococcus B carrier state complicating childbirth; Z3A.35 35 weeks gestation of pregnancy; Z37.0 Single live birth